=== PATIENT | female | born 1950 | race Caucasian/White ===

== ENCOUNTER 2023-10-31 08:33 | Outpatient (CLI) | payer MEDICARE, SELFPAY ==
--- NOTE | 2023-10-31 08:30 | RT.EKG_ITS ---
APPROVED REPORT Exam: Resting ECG Reason for Exam: afib Patient Location: O HR:88 bpm ECG Measurements Heart Rate 88 AXIS MT [id number] P [id number] QRSd 94 QRS 14 QT 354 T 52 QTc 429 Conclusion Sinus rhythm ist degree AV block Borderline T abnormalities, lateral leads...T flat/neg, I aVL V5 V6 Baseline wander in lead(s) V4,V5,V6
== END 2023-10-31 08:34 | disposition home or self-care (01) ==
LOC: DI.CARD 08:34
PROVIDERS: PCP Family Medicine; Visit Provider Internal Medicine Cardiovascular Disease
DX: I48.91 Unspecified atrial fibrillation (principal)
CPT/HCPCS: 93010

== ENCOUNTER → 2023-10-31 11:10 | Outpatient (BNVA) | payer MEDICARE, SELFPAY | PROVIDERS: PCP Family Medicine; Referring Provider Family Medicine; Visit Provider Internal Medicine Cardiovascular Disease | DX: I48.0 Paroxysmal atrial fibrillation (principal); I35.0 Nonrheumatic aortic (valve) stenosis; I44.0 Atrioventricular block, first degree; I48.91 Unspecified atrial fibrillation | CPT/HCPCS: 93005; 99203 ==